=== PATIENT | female | born 2000 | race Caucasian/White ===

== ENCOUNTER 2023-06-14 09:57 | Inpatient (IN) | payer OTHER ==
[~2023-06-14] VITALS: Ht 154.9 cm; Wt 63.5 kg
[2023-06-14 09:55] VITALS: BP 101/59; PULSE 82; RESP 18; TEMP 98.1
[2023-06-14] MEDS ORDERED: PREN-543 PO (10:20)
[2023-06-14] MEDS ORDERED: CITRIC ACID/SODIUM CITRATE 30 ML UDC PO SCH (10:20)
[2023-06-14 11:10] LABS: BASOPHILS % (AUTO) 0.3 % (0.0-2.0); EOSINOPHILS # (AUTO) 0.1 K/uL (0-0.4); EOSINOPHILS % (AUTO) 1.1 % (0.0-4.0); HEMATOCRIT 37.5 % (36-48); HEMOGLOBIN 12.9 g/dL (12.0-16.0); LYMPHOCYTES # (AUTO) 1.9 K/uL (2.5-16.5); LYMPHOCYTES % (AUTO) 20.1 % (20.5-51.1); MEAN CORPUSCULAR HEMOGLOBIN 31 pg (27-31); MEAN CORPUSCULAR HGB CONC 34 g/dL (33-37); MEAN CORPUSCULAR VOLUME 90.1 fL (80-94); MONOCYTES # (AUTO) 0.8 K/uL (0.8-1.0); MONOCYTES % (AUTO) 8.1 % (1.7-9.3); NEUTROPHILS # (AUTO) 6.6 K/uL (1.8-7.7); NEUTROPHILS % (AUTO) 70.4 % (42.2-75.2); PLATELET COUNT (AUTO) 256 K/uL (140-450); RED BLOOD CELL COUNT(AUTO) 4.16 MIL/uL (4.20-5.40); RED CELL DISTRIBUTION WIDTH 13.8 % (11.6-13.7); WHITE BLOOD COUNT (AUTO) 9.4 K/uL (4.8-10.8)
[2023-06-14 11:11] LABS: APPEARANCE,URINE CLOUDY (CLEAR); BILIRUBIN,URINE NEGATIVE (NEGATIVE); BLOOD, URINE NEGATIVE (NEGATIVE); COLOR,URINE YELLOW (YELLOW); LEUKOCYTE ESTERASE ,URINE 2+ (NEGATIVE); NITRITE, URINE NEGATIVE (NEGATIVE); PROTEIN,URINE NEGATIVE (NEGATIVE); UGLUCOSE NEGATIVE (NEGATIVE); UROBILINOGEN,URINE 0.2 EU/dL (0.2 - 1)
[2023-06-14 11:20] LABS: RBC,URINE 0-5 /HPF (0-5)
[2023-06-14 11:21] LABS: BACTERIA,URINE 10-30 (MOD) /HPF (None Seen); SQUAMOUS EPITHELIAL CELL,UR 4-10 (MOD) /LPF (0-3 (FEW))
[2023-06-14 11:28] LABS: INR 0.88 (0.8-1.2); PARTIAL THROMBOPLASTIN TIME 27.6 secs (22-35.6); PROTHROMBIN TIME 9.3 secs (10.8-13.4)
[2023-06-14] MEDS: LACTATED RINGERS 1,000 ML IV SCH (11:29)
[2023-06-14 11:30] LABS: ALBUMIN 2.6 g/dL (3.4-5.0); ANION GAP 12.7 (8-16); CALCIUM 8.3 mg/dL (8.5-10.1); CARBON DIOXIDE 24.9 mmol/L (21-32); CREATININE 0.5 mg/dL (0.6-1.3); POTASSIUM 3.6 mmol/L (3.5-5.1); TOTAL BILIRUBIN 0.3 mg/dL (0.0-1.0); TOTAL PROTEIN, SERUM 6.3 g/dL (6.4-8.2)
[2023-06-14] MEDS ORDERED: MORPHINE PRES FREE 10 MG/10 ML AMP IV ONE (12:09)
[2023-06-14] MEDS ORDERED: OXYTOCIN/0.9 % SODIUM CHLORIDE 500 ML IV ONE (12:16)
[2023-06-14] MEDS ORDERED: oxyCODONE/APAP 5/325 MG 1 TAB TAB PO PRN (12:35)
[2023-06-14] MEDS ORDERED: KETOROLAC 30 MG/ML VIAL IVP PRN (12:35)
[2023-06-14] MEDS ORDERED: TEMAZEPAM 15 MG CAP PO PRN (12:35)
[2023-06-14] MEDS ORDERED: OXYTOCIN 20 UNITS in LACTATED RINGERS 1,000 ML IV SCH (12:35)
[2023-06-14] MEDS ORDERED: METHYLERGONOVINE 0.2 MG/ML AMP IM PRN (12:35)
[2023-06-14] MEDS ORDERED: diphenhydrAMINE 50 MG/ML VIAL ONE (13:00)
[2023-06-14] MEDS ORDERED: NALBUPHINE 10 MG/ML AMP IVP PRN (13:15)
[2023-06-14] MEDS ORDERED: NALOXONE 0.4 MG/ML VIAL IVP PRN ×3 (13:15)
[2023-06-14] MEDS ORDERED: ONDANSETRON 4 MG/2 ML VIAL IVP PRN (13:15)
[2023-06-14] MEDS: diphenhydrAMINE 50 MG/ML VIAL IVP PRN (13:25)
[2023-06-14] MEDS: OXYTOCIN/0.9 % SODIUM CHLORIDE 500 ML IV SCH (13:27)
[2023-06-14] MEDS: KETOROLAC 30 MG/ML VIAL IM/IVP SCH (18:20)
[2023-06-14] MEDS: DOCUSATE SOD/SENNA 50/8.6 MG 1 TAB PO SCH (21:00)
[2023-06-14] MEDS ORDERED: MEDS-TO-BEDS MC SCH (21:00)
[2023-06-15 05:32] LABS: BASOPHILS % (AUTO) 0.2 % (0.0-2.0); EOSINOPHILS % (AUTO) 0.2 % (0.0-4.0); HEMATOCRIT 34.1 % (36-48); HEMOGLOBIN 11.8 g/dL (12.0-16.0); LYMPHOCYTES # (AUTO) 2.4 K/uL (2.5-16.5); LYMPHOCYTES % (AUTO) 18.7 % (20.5-51.1); MEAN CORPUSCULAR HEMOGLOBIN 31 pg (27-31); MEAN CORPUSCULAR HGB CONC 35 g/dL (33-37); MEAN CORPUSCULAR VOLUME 89.2 fL (80-94); MONOCYTES % (AUTO) 8.2 % (1.7-9.3); NEUTROPHILS # (AUTO) 9.3 K/uL (1.8-7.7); NEUTROPHILS % (AUTO) 72.7 % (42.2-75.2); PLATELET COUNT (AUTO) 236 K/uL (140-450); RED BLOOD CELL COUNT(AUTO) 3.82 MIL/uL (4.20-5.40); WHITE BLOOD COUNT (AUTO) 12.8 K/uL (4.8-10.8)
[2023-06-15] MEDS: IBUPROFEN 800 MG TAB PO PRN (17:45)
[2023-06-15] MEDS: SIMETHICONE 80 MG TAB.CHEW PO PRN (17:45)
[2023-06-15] MEDS ORDERED: CAMERA MC ONE (19:23)
[2023-06-15] MEDS: oxyCODONE/APAP 5/325 MG 1 TAB TAB PO PRN (20:06)
== END 2023-06-16 13:40 | disposition home or self-care (01) | DRG 540 ==
LOC: MLD 09:57 → MFCC 14:00
PROVIDERS: ADMIT Obstetrics & Gynecology; ATTEND Obstetrics & Gynecology
PROC: 10D00Z1 Extraction of Products of Conception, Low, Open Approach (ICD-10-PCS; principal; 2023-06-14 12:00)
DX: O34.211 Maternal care for low transverse scar from previous cesarean delivery (principal); Z37.0 Single live birth; Z3A.38 38 weeks gestation of pregnancy
CPT/HCPCS: 36415; 51702; 80053; 81001; 85025; 85610; 85730; 86592; 86886; 86900; 86901; 87081; 87086; J0690; J1200; J1885; J2270; J2590; J7060